=== PATIENT | female | born 1980 | race Caucasian/White ===

== ENCOUNTER 2021-06-23 14:36 | Outpatient (CLI) | payer BC ==
[2021-06-23] MEDS ORDERED: FLUO60TA PO (14:59)
[2021-06-23] MEDS ORDERED: NORETHINDRONE PO (14:59)
[2021-06-23] MEDS ORDERED: FERR325T23 PO (14:59)
[2021-06-23] MEDS ORDERED: TOPI25TA32 PO (14:59)
[2021-06-23 15:37] LABS: BASOPHILS % (AUTO) 1 % (0-1); EOSINOPHILS % (AUTO) 2 % (1-7); LYMPHOCYTES % (AUTO) 23 % (22-44); MEAN CORPUSCULAR HEMOGLOBIN 21.2 pg (27.0-34.8); MEAN CORPUSCULAR HGB CONC 30.7 g/dL (32.4-35.8); MEAN PLATELET VOLUME 8.7 fL (7.4-10.4); MONOCYTES % (AUTO) 5 % (2-9); NEUTROPHILS % (AUTO) 70 % (42-75); PLATELET COUNT 635 x10^3/uL (130-400); RED BLOOD COUNT 5.31 x10^6/uL (3.82-5.3); RED CELL DISTRIBUTION WIDTH 33.1 % (9.6-15.2)
[2021-06-23 15:50] LABS: ANION GAP 7 mmol/L (5-15); CALCIUM 9.1 mg/dL (8.5-10.1); CHLORIDE 110 mmol/L (98-107)
[2021-06-23 15:55] LABS: CREATININE 0.85 mg/dL (0.55-1.02)
[2021-06-23 17:16] LABS: ANISOCYTOSIS 1+; HYPOCHROMIA 1+; MICROCYTOSIS 1+; OVALOCYTES 1+; POLYCHROMASIA 1+
[2021-06-23 17:17] LABS: <PLATELET ESTIMATE> INCREASED; <PLT MORPHOLOGY> NORMAL PLT MORPH
== END 2021-06-23 23:59 | disposition home or self-care (01) ==
LOC: STAR 14:36
PROVIDERS: ATTEND Obstetrics & Gynecology
DX: Z01.812 Encounter for preprocedural laboratory examination (principal); Z20.822 Contact with and (suspected) exposure to COVID-19; N92.1 Excessive and frequent menstruation with irregular cycle; D50.0 Iron deficiency anemia secondary to blood loss (chronic)
CPT/HCPCS: 36415; 80048; 84702; 85025; 87635

== ENCOUNTER 2021-06-28 09:37 | Day surgery (SDC) | payer BC, OTHER ==
[~2021-06-28] VITALS: Ht 180.3 cm; Wt 150.8 kg
[~2021-06-28 09:37] MED LIST: FERR325T23 PO; FLUO60TA PO; NORETHINDRONE PO; TOPI25TA32 PO
[2021-06-28] MEDS ORDERED: FENTANYL PF 250 MCG/5ML ONE ×2 (09:58→13:14)
[2021-06-28] MEDS ORDERED: LACTATED RINGERS 1,000 ML IV SCH (10:00)
[2021-06-28 10:15] VITALS: BP 164/94
[2021-06-28 10:29] LABS: HCG UR SG 1.019 (1.003-1.030)
[2021-06-28] MEDS ORDERED: CHLORHEXIDINE 15 ML UDC PO ONE (11:00)
[2021-06-28] MEDS ORDERED: EPINEPHRINE 1 MG/ML, 1ML ONE (11:35)
[2021-06-28] MEDS ORDERED: BUPIVACAINE/PF 0.25% ONE (11:35)
[2021-06-28] MEDS ORDERED: FLUORESCEIN SODIUM 500 MG/5 ML ONE (11:35)
[2021-06-28] MEDS ORDERED: PROPOFOL 50 ML ONE ×2 (12:31→13:18)
[2021-06-28] MEDS ORDERED: EPHEDRINE 50 MG/ML, 1ML IVPush PRN (13:00)
[2021-06-28] MEDS ORDERED: MEPERIDINE/PF 25MG/0.5ML IVPush PRN (13:00)
[2021-06-28] MEDS ORDERED: METHOCARBAMOL 1,000 MG in DEXTROSE 5% 100 ML IV PRN (13:00)
[2021-06-28] MEDS ORDERED: HYDROmorphone 1 MG/ML, 1ML INJ IVPush PRN (13:00)
[2021-06-28] MEDS ORDERED: LABETALOL 5MG/ML, 20ML IV PRN (13:00)
[2021-06-28] MEDS ORDERED: FENTANYL PF 100 MCG/2ML IV PRN (13:00)
[2021-06-28] MEDS ORDERED: HALOPERIDOL 5 MG/ML IV PRN (13:00)
[2021-06-28] MEDS ORDERED: ONDANSETRON 2MG/ML, 2ML IVPush PRN (13:00)
[2021-06-28] MEDS ORDERED: PROMETHAZINE 25 MG/ML, 1ML IVPush PRN (13:00)
[2021-06-28] MEDS ORDERED: ACETAMINOPHEN 325 MG TABLET PO PRN (13:00)
[2021-06-28] MEDS ORDERED: hydrALAzine 20 MG/ML, 1ML IV PRN (13:00)
[2021-06-28] MEDS ORDERED: OXYcodone 5 MG/5 ML ORAL.SOL UDC PO PRN (13:00)
[2021-06-28] MEDS ORDERED: LORazepam 2 MG/ML, 1ML IVPush PRN (13:00)
[2021-06-28] MEDS ORDERED: hydrALAzine 20 MG/ML, 1ML ONE (14:24)
[2021-06-28] MEDS ORDERED: ACETAMINOPHEN 325 MG TABLET ONE (14:24)
[2021-06-28] MEDS ORDERED: FENTANYL PF 100 MCG/2ML ONE (14:24)
[2021-06-28] MEDS ORDERED: OXYcodone 5 MG/5 ML ORAL.SOL UDC ONE (14:24)
== END 2021-06-28 17:00 | disposition home or self-care (01) ==
LOC: OR 09:37
PROVIDERS: ATTEND Obstetrics & Gynecology
DX: N92.0 Excessive and frequent menstruation with regular cycle (principal); D50.0 Iron deficiency anemia secondary to blood loss (chronic); N83.8 Other noninflammatory disorders of ovary, fallopian tube and broad ligament; N80.0 Endometriosis of uterus; D25.9 Leiomyoma of uterus, unspecified; F41.9 Anxiety disorder, unspecified; G43.909 Migraine, unspecified, not intractable, without status migrainosus; F32.9 Major depressive disorder, single episode, unspecified; E66.9 Obesity, unspecified; Z68.41 Body mass index [BMI] 40.0-44.9, adult; Z79.84 Long term (current) use of oral hypoglycemic drugs; Z79.899 Other long term (current) drug therapy; Z82.49 Family history of ischemic heart disease and other diseases of the circulatory system
CPT/HCPCS: 58552; 81025; 88307; J0171; J0360; J2704; J3010; J7120